=== PATIENT | female | born 1950 | race Caucasian/White ===

== ENCOUNTER → 2016-12-29 | Outpatient (CLI) | payer BC, OTHER ==
[~2016-12-29] MED LIST: METHACHOLINE KIT (J7674) INH ONE
--- NOTE | 2016-12-29 13:58 | PFTRPT ---
Site: [facility], [address] [place], [address] ID: [id number] Name: JAY CONNORS EVER F Doctor: Melodie Willis MD Tech: Se MOISE RRT Age: 66 Sex: Female Race: Height: 62.00 Inches Weight: 150.00 Lbs BSA: 1.69 Diagnosis: R05 test meet the ATS standards for acceptability and repeatability. Pt was given four puffs of albuterol for postbronchodilator. Pre-Bronch Post-Bronch Pred Actual %Pred Actual %Chng SPIROMETRY FVC (L) 2.92 3.45 117 3.40 -1 FEV1 (L) 2.23 2.89 129 2.83 -1 FEV1/FVC (%) 77 84 108 83 FEF 25% (L/sec) 4.65 5.10 109 4.98 -2 FEF 50% (L/sec) 3.49 4.00 114 3.23 -19 FEF 75% (L/sec) 1.10 1.62 146 1.50 -7 FEF 25-75% (L/sec) 2.02 3.33 164 3.12 -6 FEF Max (L/sec) 5.70 5.10 89 4.98 -2 FIVC (L) 3.40 3.12 -8 FIF 50% (L/sec) 3.29 5.40 164 4.99 -7 FIF Max (L/sec) 5.40 5.04 -6
== END ==
LOC: M CARPUL 08:54
PROVIDERS: ATTEND Internal Medicine Pulmonary Disease
DX: R05 Cough (principal)
CPT/HCPCS: 94070; J7674